=== PATIENT | male | born 1985 | race Two or more races ===

== ENCOUNTER 2020-06-07 10:24 | Outpatient (CLI) | payer MEDICAID ==
[~2020-06-07] VITALS: Ht 190.5 cm; Wt 77.1 kg
[2020-06-07 10:40] VITALS: BP 121/68
== END 2020-06-07 12:24 | disposition home or self-care (01) ==
LOC: PAN 10:24
DX: K62.5 Hemorrhage of anus and rectum (principal); K51.90 Ulcerative colitis, unspecified, without complications
CPT/HCPCS: 99203